=== PATIENT | female | born 1985 | race Caucasian/White ===

== ENCOUNTER 2016-07-24 17:48 | Emergency (ER) | payer OTHER ==
--- NOTE | 2016-07-24 19:01 | ED ORDER SUMMARY ---
..... Patient: HEMANT VANCE OrderSheet [facility] VisitID: [id number] [address] [place] [address] 30y, F Registration Date/Time: 07/24/2016 ORDER SHEET Weight: 52.6 kg (stated) Allergies: Ibuprofen, Monostat cream , PCN, Phenergan, Naproxen GENERAL ORDERS: Ankle 3 or 4V Right Urgent (18:09 07/24/2016 Dara Leonard) (Ack 18:10 LNations ER Tech1) (18:34 RMarsden R.N.) Splint (LE) (Right) (boot) (18:56 07/24/2016 Dara Leonard) (19:12 TBowen R.N.) MEDICATION ORDERS: IV FLUIDS: ORDER SHEET NOTES: [Electronically signed by Lexii Amezcua P.A.-C (19:42 07/24/2016)] [Electronically signed by Nia Martinez R.N. (09:15 08/05/2016)] [Electronically locked/signed by Nia Martinez R.N. (09:15 08/05/2016)]
--- NOTE | 2016-07-24 19:01 | ED ORDER SUMMARY ---
..... Patient: HEMANT VANCE OrderSheet [facility] VisitID: [id number] [address] [place] [address] 30y, F Registration Date/Time: 07/24/2016 ORDER SHEET Weight: 52.6 kg (stated) Allergies: Ibuprofen, Monostat cream , PCN, Phenergan, Naproxen GENERAL ORDERS: Ankle 3 or 4V Right Urgent (18:09 07/24/2016 Dara Leonard) (Ack 18:10 LNations ER Tech1) (18:34 RMarsden R.N.) Splint (LE) (Right) (boot) (18:56 07/24/2016 Dara Leonard) (19:12 TBowen R.N.) MEDICATION ORDERS: IV FLUIDS: ORDER SHEET NOTES: [Electronically signed by Lexii Amezcua P.A.-C (19:42 07/24/2016)] [Electronically signed by Nia Martinez R.N. (09:15 08/05/2016)] [Electronically locked/signed by Nia Martinez R.N. (09:15 08/05/2016)]
--- NOTE | 2016-07-24 19:01 | ED NURSING NOTES ---
Clinical Report - Nurses [place] [address] [place] [address] 07/24/2016 17:50 Patient: HEMANT VANCE TRIAGE Triage time 17:54. Acuity: LEVEL 4. 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 18:03 07/24/16. Alert. No acute distress. ILENE COMA SCORE: Ilene Coma Scale: 15- eyes open spontaneously (4); best verbal response- oriented x 4 (5); best motor response- obeys commands (6). --18:05 Sue Chong R.N. 17:54 07/24/16. BP: 103/60. HR: 75. RR: 14. O2 saturation: 99%. Temp: 98.7 F. Pain level now: 09/04. --18:05 Sue Chong R.N. Weight: 52.6 kg stated. Height/Length: 63 inches Per Patient. BMI: 20.5. --18:00 Sue Chong R.N. Medications None. --17:58 Sue Chong R.N. Allergies Ibuprofen.(itching) Monostat cream . (vaginal blister and redness) PCN.(SOB) --17:57 Sue Chong R.N. Phenergan. --17:58 Sue Chong R.N. Naproxen. --17:58 Sue Chong R.N. History Arrived by private vehicle. Historian: patient. Primary physician (Dr Warren). Location of injuries: lower back, left ankle, left posterior ankle, left anterior ankle and left lateral ankle. This occurred yesterday. Occurred at work. 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 ( Patient states "my toes have been going numb." Patient clarified toe numbness is on R foot.). No loss of consciousness. 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 PAST MEDICAL HX: Tetanus status: up-to-date. Immunizations: up-to-date. Denies current . SOCIAL HX: Heavy tobacco smoker- less than 1 pack per day. Occasional alcohol use. No drug use. FALL RISK ASSESSMENT: Fall risk assessment completed. No fall risk identified. NUTRITIONAL RISK ASSESSMENT: The nutritional risk assessment revealed no deficiencies. FUNCTIONAL ASSESSMENT: Functional assessment: no impairments noted. LEARNING NEEDS ASSESSMENT: The learning needs assessment revealed no barriers. SKIN INTEGRITY ASSESSMENT: Skin integrity risk assessment completed. No skin integrity risk identified. --18:05 Sue Chong R.N. ADDITIONAL SURGERIES: Hysterectomy. --17:59 Sue Chong R.N. Interventions ID band on patient. To treatment room. --18:05 Sue Chong R.N. PHYSICAL ASSESSMENT 18:06 07/24/16. GENERAL / NEURO / PSYCH: Alert. Oriented X 4. Appears in no acute distress. RESPIRATORY: Respirations not labored. CVS: Pulses within normal limits. GI / : Abdomen soft and nontender. EXTREMITIES: Extremities exhibit normal ROM. SKIN: Skin intact. Skin is warm and dry. --18:06 Sue Chong R.N. NURSING PROGRESS NOTES 18:07 07/24/16. Two patient identifiers checked. Call light placed in reach. Bed placed in lowest position. Brakes of bed on. --18:07 Sue Chong R.N. 18:33 07/24/16. Patient informed about reason for wait and about plan of care. ( patient ambulated to bathroom). --18:33 Sue Chong R.N. 19:09 07/24/16. Care transferred and report given (to GEORGINA Tena). --19:09 Sue Chong R.N. Stirrup velcro lower extremity splint applied to right ankle by nurse. Distal pulses intact, sensation intact and motor within normal limits. --19:10 Marc Henriquez DISPOSITION / DISCHARGE Condition at departure: improved. No learning barriers present. Discharge instructions provided and reviewed with the patient. Reviewed medication(s) side effects, precautions, dosing and course information. Prescription(s) given to the patient. Treatments reviewed. Reviewed referrals. Activity restrictions reviewed. Work note given. Follow up contact number. Patient verbalized understanding. Written instructions provided in Khmer. No warning instructions, diet instructions or stop smoking instructions. The patient was discharged by the physician power plant assistant. She was discharged home and accompanied by family. She left the Emergency Department ambulatory and via private vehicle. Family member driving. FALL RISK ASSESSMENT: Fall risk assessment completed. No fall risk identified. --19:11 Marc Henriquez 19:10 07/24/16. BP: 118/72. HR: 68. RR: 18. O2 saturation: 99%. Temp: deferred. Pain level now: 0. --19:11 Marc Henriquez Departure time: 19:11. --19:11 Marc Henriquez Locked/Released at 08/05/2016 9:15 by Nia Martinez R.N.
--- NOTE | 2016-07-24 19:01 | ED NURSING NOTES ---
Clinical Report - Nurses [place] [address] [place] [address] 07/24/2016 17:50 Patient: HEMANT VANCE TRIAGE Triage time 17:54. Acuity: LEVEL 4. 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 18:03 07/24/16. Alert. No acute distress. ILENE COMA SCORE: Ilene Coma Scale: 15- eyes open spontaneously (4); best verbal response- oriented x 4 (5); best motor response- obeys commands (6). --18:05 Sue Chong R.N. 17:54 07/24/16. BP: 103/60. HR: 75. RR: 14. O2 saturation: 99%. Temp: 98.7 F. Pain level now: 09/04. --18:05 Sue Chong R.N. Weight: 52.6 kg stated. Height/Length: 63 inches Per Patient. BMI: 20.5. --18:00 Sue Chong R.N. Medications None. --17:58 Sue Chong R.N. Allergies Ibuprofen.(itching) Monostat cream . (vaginal blister and redness) PCN.(SOB) --17:57 Sue Chong R.N. Phenergan. --17:58 Sue Chong R.N. Naproxen. --17:58 Sue Chong R.N. History Arrived by private vehicle. Historian: patient. Primary physician (Dr Warren). Location of injuries: lower back, left ankle, left posterior ankle, left anterior ankle and left lateral ankle. This occurred yesterday. Occurred at work. 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 ( Patient states "my toes have been going numb." Patient clarified toe numbness is on R foot.). No loss of consciousness. 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 PAST MEDICAL HX: Tetanus status: up-to-date. Immunizations: up-to-date. Denies current . SOCIAL HX: Heavy tobacco smoker- less than 1 pack per day. Occasional alcohol use. No drug use. FALL RISK ASSESSMENT: Fall risk assessment completed. No fall risk identified. NUTRITIONAL RISK ASSESSMENT: The nutritional risk assessment revealed no deficiencies. FUNCTIONAL ASSESSMENT: Functional assessment: no impairments noted. LEARNING NEEDS ASSESSMENT: The learning needs assessment revealed no barriers. SKIN INTEGRITY ASSESSMENT: Skin integrity risk assessment completed. No skin integrity risk identified. --18:05 Sue Chong R.N. ADDITIONAL SURGERIES: Hysterectomy. --17:59 Sue Chong R.N. Interventions ID band on patient. To treatment room. --18:05 Sue Chong R.N. PHYSICAL ASSESSMENT 18:06 07/24/16. GENERAL / NEURO / PSYCH: Alert. Oriented X 4. Appears in no acute distress. RESPIRATORY: Respirations not labored. CVS: Pulses within normal limits. GI / : Abdomen soft and nontender. EXTREMITIES: Extremities exhibit normal ROM. SKIN: Skin intact. Skin is warm and dry. --18:06 Sue Chong R.N. NURSING PROGRESS NOTES 18:07 07/24/16. Two patient identifiers checked. Call light placed in reach. Bed placed in lowest position. Brakes of bed on. --18:07 Sue Chong R.N. 18:33 07/24/16. Patient informed about reason for wait and about plan of care. ( patient ambulated to bathroom). --18:33 Sue Chong R.N. 19:09 07/24/16. Care transferred and report given (to GEORGINA Tena). --19:09 Sue Chong R.N. Stirrup velcro lower extremity splint applied to right ankle by nurse. Distal pulses intact, sensation intact and motor within normal limits. --19:10 Marc Henriquez DISPOSITION / DISCHARGE Condition at departure: improved. No learning barriers present. Discharge instructions provided and reviewed with the patient. Reviewed medication(s) side effects, precautions, dosing and course information. Prescription(s) given to the patient. Treatments reviewed. Reviewed referrals. Activity restrictions reviewed. Work note given. Follow up contact number. Patient verbalized understanding. Written instructions provided in Amharic. No warning instructions, diet instructions or stop smoking instructions. The patient was discharged by the physician executive staff assistant. She was discharged home and accompanied by family. She left the Emergency Department ambulatory and via private vehicle. Family member driving. FALL RISK ASSESSMENT: Fall risk assessment completed. No fall risk identified. --19:11 Marc Henriquez 19:10 07/24/16. BP: 118/72. HR: 68. RR: 18. O2 saturation: 99%. Temp: deferred. Pain level now: 0. --19:11 Marc Henriquez Departure time: 19:11. --19:11 Marc Henriquez Locked/Released at 08/05/2016 9:15 by Nia Martinez R.N.
--- NOTE | 2016-07-24 19:01 | ED CLINICAL REPORT ---
Clinical Report - Physicians/Mid Levels [facility] [address] [place] [address] 07/24/2016 17:50 [id number] Time Seen: 18:02 Jul 24 2016. Arrived- By private vehicle. Historian- patient. HISTORY OF PRESENT ILLNESS Chief Complaint: FALL. Location of injuries- lower back and right ankle. The injury occurred yesterday. Occurred at work. The patient complains of mild pain. No blow to the head, neck pain or loss of consciousness. (Patient slipped on a step from her truck, and fell at work. She slipped on a step, consequently sustained injury to her lower back from the step during the fall. Denies previous injury to the ankle. Patient reports she has been ambulatory, pain worsens with ambulation. No injury to the head or neck. Low back pain is minimal. Denies any voiding concerns or difficulty with stool.). REVIEW OF SYSTEMS The patient has had loss of vision and hearing loss but no pain on weight bearing. No laceration. All systems otherwise negative, except as recorded above. PAST HISTORY Tetanus immunization status is up-to-date. SOCIAL HISTORY Heavy tobacco smoker- 1 pack per day. Alcohol use. No drug use. ADDITIONAL NOTES The nursing notes have been reviewed. PHYSICAL EXAM Vital Signs: 07/24/2016 17:54 BP: 103/60. HR: 75. RR: 14. O2 saturation: 99%. Temp: 98.7 F. Pain level now: 5/10. Appearance: Alert. No acute distress. No backboard or C-collar. Head: Head non-tender. ENT: No dental injury. No malocclusion. Neck: No decreased ROM in the neck. Non-tender. No vertebral tenderness. Posterior neck: No tenderness or swelling. CVS: Heart sounds normal. Pulses normal. No JVD. Respiratory: Breath sounds normal. Chest nontender. No chest wall injury. Abdomen: No visible injury. Bowel sounds normal. No abdominal tenderness. Back: No tenderness. Mild soft-tissue tenderness in the right lower lumbar area. ROM normal. No vertebral point tenderness. Skin: Skin intact. Skin warm. Extremities: Normal inspection. Pelvis stable. Right ankle: moderate tenderness and mild swelling localized to the lateral malleolus and medial malleolus. Neurovascular intact distally. (neg mullins test, intact R. ankle, no pain posteriorly). No ligamentous laxity present. No joint effusion. No ecchymosis or foreign body. No deformity consistent with an Achilles tendon rupture. Extremities atraumatic. Neuro: [place] Coma Scale: 15- eyes open spontaneously (4); best verbal response- oriented x 3 (5); best motor response- obeys commands (6). Oriented X 3. No motor deficit. LABS, X-RAYS, AND EKG Lt Ankle X-ray: No fracture. No left ankle fracture. (as reviewed with. Dr. Malloy). Interpretation time: 1899. PROGRESS AND PROCEDURES Course of Care: Patient is ambulatory, no signs of Achilles injury. Mild swelling and tenderness. Patient placed in an air stirrup for comfort, to follow up outpatient. No signs of ecchymosis/ abrasion. Stable. Patient is stable. Patient/family counseled. Differential Diagnosis: I considered sprain, dislocation, ligament injury, fracture, degenerative joint disease, arthritis, gout and pseudogout as a possible cause of joint pain in this patient. This is a partial list of diagnoses considered. Disposition: Discharged. CLINICAL IMPRESSION Sprain of the tibiofibular ligament of the right ankle. INSTRUCTIONS Apply ice. Elevate affected areas above chest level. Wear boot orthosis. Do not work today (07/24 to 07/26). Prescription Medications: Hydrocodone/APAP 5mg / 325mg: take 1 orally every 12 hours as needed for pain. (#6) OTC Medications: Acetaminophen (available over the counter): take according to label instructions. Follow-up: Follow up with your doctor in five days as needed. (Electronically signed by Lexii Amezcua P.A.-C 07/24/2016 19:42)
--- NOTE | 2016-07-24 19:52 | DIAGNOSTIC IMAGING REPORT ---
PROCEDURE: XR ANKLE 3 OR 4 VIEWS - RIGHT INDICATION: TRAUMA/INJURY TECHNIQUE: Four views. COMPARISON: None. FINDINGS: Osseous structures and joint spaces are normal. IMPRESSION: 1. Normal right ankle.
--- NOTE | 2016-08-05 09:15 | ED DISCHARGE INSTRUCTIONS ---
Patient: HEMANT VANCE General Instructions [facility] VisitID: [id number] [place] [address] 30y, F Registration Date/Time: 07/24/2016 Sprain of the tibiofibular ligament of the right ankle. INSTRUCTIONS Apply ice. Elevate affected areas above chest level. Wear boot orthosis. Do not work today (07/24 to 07/26). Prescription Medications: Hydrocodone/APAP 5mg / 325mg: take 1 orally every 12 hours as needed for pain. (#6) OTC Medications: Acetaminophen (available over the counter): take according to label instructions. Follow-up: Follow up with your doctor in five days as needed. ADDITIONAL INFORMATION Sprain, Ankle,With X-Ray A sprain is an injury to the ligaments or capsule that holds a joint together. There are no broken bones. Most sprains take from four to six weeks to heal. If the ligament is completely torn (severe sprain), it can take several months to recover. Mild to moderate sprains may be treated with an elastic wrap or an in-shoe splint to provide support and prevent re-injury. A mild sprain may not require any additional support. A severe sprain may require surgery to repair. Home care The following guidelines will help you care for your injury at home: Stay off the injured leg as much as possible until you can walk on it without pain. If you have a lot of pain with walking, crutches or a walker may be prescribed. (These can be rented or purchased at many pharmacies and surgical or orthopedic supply stores). Follow your doctor's advice regarding when to begin bearing weight on that leg. Keep your leg elevated to reduce pain and swelling. When sleeping, place a pillow under the injured leg. When sitting, support the injured leg so it is level with your waist. This is very important during the first 48 hours. Apply an ice pack (ice cubes in a plastic bag, wrapped in a towel) over the injured area for 20 minutes every 12 hours the first day. You can place the ice pack directly over the splint/cast. If you were given a boot, open it to apply the ice pack. Continue with ice packs 34 times a day for the next two days, then as needed for the relief of pain and swelling. You may use acetaminophen or ibuprofen to control pain, unless another pain medicine was prescribed. If you have chronic liver or kidney disease or ever had a stomach ulcer or GI bleeding, talk with your doctor before using these medicines. You may return to sports after healing, when you can run without pain. A sprained ankle is at risk for re-injury during the first six weeks. During that time, protect your ankle with an in-shoe splint that prevents tilting of your ankle from side to side. This is very important if you do active work or play sports during that time. Follow-up care Any X-rays you had today dont show any broken bones, breaks, or fractures. Sometimes fractures dont show up on the first X-ray. Bruises and sprains can sometimes hurt as much as a fracture. These injuries can take time to heal completely. If your symptoms dont improve or they get worse, talk with your doctor. You may need a repeat X-ray. When to seek medical care Get prompt medical attention if any of the following occur: The plaster cast or splint gets wet or soft The fiberglass cast or splint gets wet and does not dry for 24 hours Pain or swelling increases, or redness appears Toes become cold, blue, numb or tingly Re-injure your ankle Aircast Sp-Walker Boot Traditional splints and casts for the foot and ankle protect the injury by preventing movement at the joints. However, many injuries heal better and faster if the injured joint can be moved, while protected at the same time. This is the reason for using an Aircast Walker boot. This is a short boot that provides support and protection to the foot and ankle while allowing you to walk. It contains padded air cells that provide compression and help circulation. It is used for both foot and ankle injuries - both sprains and minor fractures. Ankle and foot sprains can take 4-6 weeks to heal. Persons with severe injuries or over age 60 may require more time to heal. During that time, you are prone to re-injury by suddenly twisting your foot or ankle again while the ligaments are still weak. When treating a sprain, the AirCast Walker boot should be worn whenever walking for at least four weeks, or as long as you continue to have ankle pain. Talk to your doctor for specific advice about the treatment of your condition. Air-Stirrup and SP-Walker are trademarks of [employer]. For more information about their products, see www.[employer]. You have been given the following additional information: Sprain, Ankle, With X-Ray Walker Boot Do not work today (07/24 to 07/26). (Electronically signed by Lexii Amezcua P.A.-C 07/24/2016 19:42)
--- NOTE | 2016-08-05 09:15 | ED MED RECONCILIATION SUMMARY ---
Patient: HEMANT VANCE Medication Reconciliation Report [facility] VisitID: [id number] [address] [place] [address] 30y, F Registration Date/Time: 07/24/2016 Weight: 52.6 kg Height/Length: 63 in. BMI: 20.5 ALLERGIES: Ibuprofen, Monostat cream , Naproxen, PCN, Phenergan The patient's Home Medications are listed below: NONE. The source(s) of the original Home Medication information: Not obtained. The following Medications were given to the patient in the Emergency Department: None. The following Medications were prescribed to the patient: Acetaminophen (available over the counter): take according to label instructions. -- Lexii Amezcua, P.A.-Abel Hydrocodone/APAP 5mg / 325mg: take 1 orally every 12 hours as needed for pain.(#6) -- Lexii Amezcua P.A.-C
--- NOTE | 2016-08-05 09:15 | ED MAR SUMMARY ---
..... Medication Administration [facility] [address] [place], [place] [id number] Patient: HEMANT VANCE Visit ID: [id number] 30y, F Weight: 52.6 kg Height/Length: 63 in BMI: 20.5 ALLERGIES: Naproxen, Phenergan, Ibuprofen, Monostat cream , PCN
--- NOTE | 2016-08-05 09:15 | ED MED RECONCILIATION SUMMARY ---
Patient: HEMANT VANCE Medication Reconciliation Report [facility] VisitID: [id number] [address] [place] [address] 30y, F Registration Date/Time: 07/24/2016 Weight: 52.6 kg Height/Length: 63 in. BMI: 20.5 ALLERGIES: Ibuprofen, Monostat cream , Naproxen, PCN, Phenergan The patient's Home Medications are listed below: NONE. The source(s) of the original Home Medication information: Not obtained. The following Medications were given to the patient in the Emergency Department: None. The following Medications were prescribed to the patient: Acetaminophen (available over the counter): take according to label instructions. -- Lexii Amezcua, P.A.-Abel Hydrocodone/APAP 5mg / 325mg: take 1 orally every 12 hours as needed for pain.(#6) -- Lexii Amezcua P.A.-C
--- NOTE | 2016-08-05 09:15 | ED MAR SUMMARY ---
..... Medication Administration Record [facility] [address] [place], [place] [id number] Patient: HEMANT VANCE Visit ID: [id number] 30y, F Weight: 52.6 kg Height/Length: 63 in BMI: 20.5 ALLERGIES: Naproxen, Phenergan, Ibuprofen, Monostat cream , PCN
== END 2016-07-24 19:10 | disposition home or self-care (01) ==
LOC: ED SRH 17:48
DX: S93.491A Sprain of other ligament of right ankle, initial encounter (principal); W01.0XXA Fall on same level from slipping, tripping and stumbling without subsequent striking against object, initial encounter; Y93.89 Activity, other specified; Y92.69 Other specified industrial and construction area as the place of occurrence of the external cause; Y99.9 Unspecified external cause status